=== PATIENT | female | born 1995 | race Caucasian/White ===

== ENCOUNTER 2016-12-13 13:51 | Emergency (ER) | payer OTHER ==
[~2016-12-13] VITALS: Ht 165.1 cm; Wt 67.7 kg
[2016-12-13 13:56] VITALS: BP 119/61; TEMP 98.3
[2016-12-13 14:36] VITALS: PULSE 86
== END 2016-12-13 14:37 | disposition home or self-care (01) ==
LOC: COL.ER 13:51
DX: S09.90XA Unspecified injury of head, initial encounter (principal); W19.XXXA Unspecified fall, initial encounter; W22.8XXA Striking against or struck by other objects, initial encounter